=== PATIENT | female | born 1990 | race Caucasian/White ===

== ENCOUNTER 2016-12-29 18:17 | Emergency (ER) | payer BC, OTHER ==
[~2016-12-29] VITALS: Ht 165.1 cm; Wt 100.9 kg
[~2016-12-29 18:17] MED LIST: IBUP600 PO; OXYC1SOL5 PO; PREN0.01 PO
[2016-12-29 18:23] VITALS: BP 126/92; PULSE 85; RESP 16; TEMP 98.2; O2SAT 97
[2016-12-29] MEDS ORDERED: BC IMPLANT (19:50)
--- NOTE | 2016-12-29 19:52 | RADHPO ---
EXAM DATE/TIME: 12/29/2016 19:14 [place] COMPARISON: No previous studies available for comparison. INDICATIONS : Right hand pain. Patient states she punched a floor. MEDICAL HISTORY : None. SURGICAL HISTORY : None. ENCOUNTER: Initial ACUITY: 1 day PAIN SCORE: 4/10 LOCATION: Right hand. FINDINGS: There is a relatively nondisplaced fracture through the distal right fifth metacarpal. No dislocation . Overlying soft tissue swelling is present. CONCLUSION: 1. Relatively nondisplaced fracture distal right fifth metacarpal. Huber Nur MD on December 29, 2016 at 19:49 Board Certified Radiologist. This report was verified electronically.
[2016-12-29] MEDS ORDERED: IBUP800T23 PO (20:14)
--- NOTE | 2016-12-29 20:15 | PD ---
HPI Chief Complaint: Injury Time Seen by Provider: 20:00 Travel History International Travel<30 days: No Contact w/Intl Traveler<30days: No Traveled to known affect area: No History of Present Illness HPI Patient is a 26-year-old female presenting to emergency evaluation of right hand pain. Patient states she struck the floor with her right hand earlier this afternoon. Patient reports pain over the fourth and fifth MCP's. She denies any numbness or tingling. Reports pain is a 7 out of 10. She has not taken anything to relieve the pain. She denies any other significant past medical history. She denies any numbness, tingling, weakness. 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 Codeine (Verified Adverse Reaction, Severe, anaphylaxis, 12/29/16) Reported Meds & Prescriptions Reported Meds & Active Scripts Active Reported [bc implant] Review of Systems Except as stated in HPI: all other systems reviewed are Neg Musculoskeletal: Positive: Arthralgias, Edema, Pain Physical Exam Narrative GENERAL: Well-nourished, well-developed patient. SKIN: Focused skin assessment warm/dry. HEAD: Normocephalic. EYES: No scleral icterus. No injection or drainage. NECK: Supple, trachea midline. No JVD or lymphadenopathy. CARDIOVASCULAR: Regular rate and rhythm without murmurs, gallops, or rubs. RESPIRATORY: Breath sounds equal bilaterally. No accessory muscle use. GASTROINTESTINAL: Abdomen soft, non-tender, nondistended. MUSCULOSKELETAL: No cyanosis, edema to right fourth and fifth MCP's. Radial pulse, brisk is a 3 second capillary refill. 4/5 rn documentation strength on the right. BACK: Nontender without obvious deformity. No CVA tenderness. Data Data Last Documented VS Vital Signs Date Time Temp Pulse Resp B/P Pulse Ox O2 Delivery O2 Flow Rate FiO2 12/29/16 18:23 98.2 85 16 126/92 97 Orders Hand, Complete ([id number]) (12/29/16 ) Support Splint (12/29/16 19:56) ^ Sling (12/29/16 19:56) MDM Medical Decision Making Medical Screen Exam Complete: Yes Emergency Medical Condition: Yes Interpretation(s) Vital Signs Date Time Temp Pulse Resp B/P Pulse Ox O2 Delivery O2 Flow Rate FiO2 12/29/16 18:23 98.2 85 16 126/92 97 Differential Diagnosis Fracture versus sprain versus strain versus contusion versus other Narrative Course Patient is a 26-year-old female presented for evaluation of right hand pain after striking the floor with her fists earlier this afternoon. Imaging shows a relatively nondisplaced fracture to the distal right fifth metacarpal, no dislocation. Patient is neurovascularly and neurologically intact. She will be placed in an ulnar gutter splint and sling. She will follow up with a hand surgeon as outpatient. Patient is advised to return to emergency department immediately for any new or worsening symptoms she verbalized understanding of these instructions. Diagnosis Primary Impression: Hand fracture, right Qualified Code: S62.91XA - Hand fracture, right, closed, initial encounter Referrals: Kimo Mascorro III, MD,Portia Malone,Brissa Chamberlain MD Patient Instructions: General Instructions, Hand Fracture (ED) Additional Instructions: Follow-up with a hand surgeon, and the names of 3 local providers have been given to you Follow-up with your primary doctor Take ibuprofen as needed and as directed for pain. Return to emergency department immediately for any new or worsening symptoms. Med/Other Pt SpecificInfo: Prescription(s) given Scripts Ibuprofen 800 Mg [id number] Mg PO Q6HR PRN (PAIN) #40 TAB Ref 0 Prov:Ginette Anderson 12/29/16 Disposition: 01 DISCHARGE HOME Condition: Stable Ginette Anderson Dec 29, 2016 20:14
[2016-12-29 20:35] VITALS: BP 152/74
== END 2016-12-29 21:30 | disposition home or self-care (01) ==
LOC: PHED 18:17 → PHEFT 21:30
DX: S62.91XA Unspecified fracture of right hand, initial encounter for closed fracture (principal); F17.210 Nicotine dependence, cigarettes, uncomplicated; W22.8XXA Striking against or struck by other objects, initial encounter; Y93.9 Activity, unspecified; Y92.9 Unspecified place or not applicable; Y99.8 Other external cause status
CPT/HCPCS: 29125; 73130